=== PATIENT | male | born 1990 ===

== ENCOUNTER 2017-04-01 08:56 | Emergency (ER) | payer SELFPAY ==
[2017-04-01 10:00] LABS: Basophils % (Auto) 1.1 % (0.0-1.8); Eosinophils % (Auto) 0.5 % (0.0-4.3); Hematocrit 48.5 % (35.5-45.6); Hemoglobin 16.1 gm/dl (11.8-15.2); Mean Corpuscular HGB Conc 33 % (32-34); Mean Corpuscular Hemoglobin 29 pg (28-32); Mean Corpuscular Volume 87 fl (84-94); Platelet Count 315 K/mm3 (140-440); Red Blood Count 5.57 M/mm3 (3.65-5.03); Red Cell Distribution Width 14.6 % (13.2-15.2)
[2017-04-01] MEDS ORDERED: NACL BACTERIOSTATIC INFILTRATI ONE (10:10)
[2017-04-01 10:14] LABS: Creatine Kinase MB 5.6 ng/mL (0.0-4.0)
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
[2017-04-01 10:17] LABS: Anion Gap 17 mmol/L; BUN/Creatinine Ratio 8; Blood Urea Nitrogen 8 mg/dL (9-20); Calcium 8.9 mg/dL (8.4-10.2); Carbon Dioxide 27 mmol/L (22-30); Chloride 101.8 mmol/L (98-107); Glucose 97 mg/dL (75-100); Potassium 4.5 mmol/L (3.6-5.0); Sodium 141 mmol/L (137-145)
[2017-04-01 10:18] LABS: Alanine Aminotransferase 18 units/L (7-56); Albumin 3.9 g/dL (3.9-5); Albumin/Globulin Ratio 1.1 %; Alkaline Phosphatase 89 units/L (35-129); Creatine Kinase 518 units/L (55-170); Total Protein 7.5 g/dL (6.3-8.2)
[2017-04-01 10:44] LABS: Bilirubin,Direct < 0.2 mg/dL (0-0.2); Bilirubin,Indirect 0.1 mg/dL
[2017-04-01 11:38] LABS: Urine Drugs of Abuse Note Disclamer
[2017-04-01 11:50] LABS: Bilirubin,Urine NEG (Negative); Blood,Urine NEG (Negative); Ketones,Urine NEG (Negative); Leukocyte Esterase,Urine NEG (Negative); Mucus,Urine FEW /HPF; Nitrite,Urine NEG (Negative); Protein,Urine <15 mg/dL mg/dL (Negative)
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
[2017-04-01] MEDS ORDERED: ALUM-MAG HYDROX-SIMETH 200-200-20MG/5ML PO PRN (13:51)
[2017-04-01] MEDS ORDERED: MILK OF MAGNESIA PO PRN (13:51)
[2017-04-02] MEDS: TYLENOL PO PRN ×2 (04:09→22:00)
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
[2017-04-04 12:30] VITALS: BP 106/70
== END 2017-04-04 13:52 | disposition home or self-care (01) ==
LOC: EEVIPCON 08:56 → ED 08:56
DX: S81.802A Unspecified open wound, left lower leg, initial encounter (principal); F17.200 Nicotine dependence, unspecified, uncomplicated; F12.10 Cannabis abuse, uncomplicated; Z79.899 Other long term (current) drug therapy; Y93.89 Activity, other specified; Y99.8 Other external cause status; Y92.89 Other specified places as the place of occurrence of the external cause
CPT/HCPCS: 36415; 73552; 80048; 80074; 80307; 81001; 82550; 82553; 85025; 99284; G0480; 80320

== ENCOUNTER 2019-04-05 15:09 | Emergency (ER) | payer SELFPAY ==
[2019-04-05 17:08] VITALS: BP 128/71
--- NOTE | 2019-04-05 17:14 | Emergency Department Report ---
Chief Complaint: Urogenital-Male Stated Complaint: GENTIAL DISCHARGE/PAINFUL URINATION Time Seen by Provider: 04/05/19 17:06 - HPI History of Present Illness: Pt complains of penile discharge and burning urination x 2 days He denies any hx of HIV, joint pain/swelling, fever/chills/sweats or abdominal pain - Exam Physical Exam: Pt is alert and in no acute distress Abdomen is soft, nontender, and nondistended No joint swelling or erythema noted on exam MSE screening note: Focused history and physical exam performed. Due to findings the following was ordered: Pt presents with a non-medical emergency at this time Medical screening exam was performed There is no threat to loss of life or limb ED Disposition for MSE Condition: Stable
== END 2019-04-05 21:00 | disposition left against medical advice (07) ==
LOC: ED 15:09
DX: R36.9 Urethral discharge, unspecified (principal)
CPT/HCPCS: 99281